=== PATIENT | female | born 1970 | race Two or more races ===

== ENCOUNTER 2017-11-11 07:58 | Emergency (ER) | payer OTHER ==
[~2017-11-11] VITALS: Ht 157.5 cm; Wt 108.9 kg
[2017-11-11 07:58] VITALS: BP 125/70
== END 2017-11-11 08:41 | disposition home or self-care (01) ==
LOC: ER 08:00
DX: J02.9 Acute pharyngitis, unspecified (principal); B34.9 Viral infection, unspecified; J45.909 Unspecified asthma, uncomplicated; Z90.49 Acquired absence of other specified parts of digestive tract
CPT/HCPCS: 71045; 93005; 99284; A4606; Z7610

== ENCOUNTER 2018-03-21 08:23 | Emergency (ER) | payer MEDICAID ==
[~2018-03-21] VITALS: Ht 162.6 cm; Wt 111.1 kg
--- NOTE | 2018-03-21 08:23 | NUR ---
PT BB SELF TO ER, AMBULATORY IN A STEADY GAIT TO ED BED 12 PT IS C/O FEELING WEAK, DIZZY, LIGHT HEADED X WEDNESDAY. PT STS SHE'S HAVING A HEAVY VAG BLEEDING SINCE WEDNESDAY AFTER 10 MONTH-NO MENSTRUAL PERIOD. SHE WAS TOLD BY HER PMD THAT SHE'S EXPERIENCING MENOPAUSAL STAGE. GOWNED. PALCED ON CONT CARDIAC AND POX MONITORING. WILL CONT TO MONITOR
[2018-03-21 08:58] LABS: BASOPHILS # (AUTO) 0.2 /CMM (0.0-0.2); BASOPHILS % (AUTO) 2.6 % (0.0-2.0); HEMATOCRIT 43 % (33-45); HEMOGLOBIN 15.1 g/dL (11.5-14.8); LYMPHOCYTES # (AUTO) 1.4 /CMM (0.8-4.8); MEAN CORPUSCULAR HEMOGLOBIN 30 PG (26.0-33.0); MEAN CORPUSCULAR HGB CONC 35 g/dl (31.0-36.0); MEAN CORPUSCULAR VOLUME 86 fL (82-100); MONOCYTES # (AUTO) 0.4 /CMM (0.1-1.30); MONOCYTES % (AUTO) 7.4 % (2.0-12.0); NEUTROPHILS # (AUTO) 3.8 /CMM (1.8-8.9); PLATELET COUNT (AUTO) 344 /CMM (150-450)
[2018-03-21 09:08] LABS: CALCIUM, SERUM 9.2 mg/dL (8.5-10.1); CREATININE 0.8 mg/dL (0.6-1.3); POTASSIUM 4.1 mmol/L (3.5-5.1)
[2018-03-21 09:33] VITALS: BP 152/81
--- NOTE | 2018-03-21 09:35 | NUR ---
Patient discharged to home in stable condition. Written and verbal after care instructions given. Patient verbalizes understanding of instruction.
== END 2018-03-21 09:34 | disposition home or self-care (01) ==
LOC: ER 08:31
DX: N93.8 Other specified abnormal uterine and vaginal bleeding (principal); J45.909 Unspecified asthma, uncomplicated; Z90.49 Acquired absence of other specified parts of digestive tract; Z88.8 Allergy status to other drugs, medicaments and biological substances
CPT/HCPCS: 36415; 80048; 84702; 85025; 99284; A4606; Z7610

== ENCOUNTER 2018-09-07 18:37 | Emergency (ER) | payer MEDICAID ==
[~2018-09-07] VITALS: Ht 162.6 cm; Wt 117.9 kg
[2018-09-07 18:37] VITALS: BP 139/77
[2018-09-07] MEDS ORDERED: IBUPROFEN 600 MG TABLET PO ONE ×2 (19:11→19:30)
== END 2018-09-07 19:24 | disposition home or self-care (01) ==
LOC: ER 18:38
DX: S46.091A Other injury of muscle(s) and tendon(s) of the rotator cuff of right shoulder, initial encounter (principal); J45.909 Unspecified asthma, uncomplicated; Z90.49 Acquired absence of other specified parts of digestive tract; Z88.8 Allergy status to other drugs, medicaments and biological substances; X58.XXXA Exposure to other specified factors, initial encounter; Y93.01 Activity, walking, marching and hiking; Y92.89 Other specified places as the place of occurrence of the external cause; Y99.8 Other external cause status
CPT/HCPCS: 99282; A4606; Z7610

== ENCOUNTER 2018-09-14 18:20 | Emergency (ER) | payer MEDICAID ==
[~2018-09-14] VITALS: Ht 154.9 cm; Wt 118.8 kg
[2018-09-14 18:45] VITALS: BP 144/89
[2018-09-14] MEDS ORDERED: KETOROLAC TROMETHAMINE INJ 30 MG/ML VIAL ONE (18:56)
[2018-09-14] MEDS ORDERED: HYDROCODONE/APAP 10/325MG 1 EA TABLET ONE (18:56)
[2018-09-14] MEDS: HYDROCODONE/APAP 10/325MG 1 EA TABLET PO ONE (19:04)
[2018-09-14] MEDS: KETOROLAC TROMETHAMINE INJ 60 MG/2 ML VIAL IM ONE (19:04)
--- NOTE | 2018-09-14 19:23 | NUR ---
REPORT GIVEN TO BRITTANI MENDOZA FOR ANNETTE, AWAITING XRAY RESULT.
== END 2018-09-14 19:54 | disposition home or self-care (01) ==
LOC: ER 18:24
DX: M25.511 Pain in right shoulder (principal); M62.838 Other muscle spasm; J45.909 Unspecified asthma, uncomplicated; Z90.49 Acquired absence of other specified parts of digestive tract; Z88.8 Allergy status to other drugs, medicaments and biological substances
CPT/HCPCS: 73030-TC; J1885

== ENCOUNTER 2019-02-07 19:05 | Emergency (ER) | payer MEDICAID ==
[~2019-02-07] VITALS: Ht 154.9 cm; Wt 108.9 kg
[2019-02-07 19:20] VITALS: BP 131/76
--- NOTE | 2019-02-07 19:26 | NUR ---
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
[2019-02-07] MEDS ORDERED: KETOROLAC TROMETHAMINE INJ 30 MG/ML VIAL ONE (19:31)
[2019-02-07] MEDS: KETOROLAC TROMETHAMINE INJ 60 MG/2 ML VIAL IM ONE (19:35)
--- NOTE | 2019-02-07 19:50 | NUR ---
TECH AT BEDSIDE FOR DUPLEX SCAN.
--- NOTE | 2019-02-07 20:44 | NUR ---
Patient discharged to home in stable condition. Written and verbal after care instructions given. Patient verbalizes understanding of instruction.
== END 2019-02-07 20:50 | disposition home or self-care (01) ==
LOC: ER 19:07
DX: M54.16 Radiculopathy, lumbar region (principal); J45.909 Unspecified asthma, uncomplicated; Z90.49 Acquired absence of other specified parts of digestive tract; Z88.8 Allergy status to other drugs, medicaments and biological substances
CPT/HCPCS: 93971; 96372; 99284; J1885

== ENCOUNTER 2019-06-19 18:29 | Emergency (ER) | payer MEDICAID ==
[~2019-06-19] VITALS: Ht 154.9 cm; Wt 113.4 kg
[2019-06-19 18:57] VITALS: BP 127/80
--- NOTE | 2019-06-19 19:30 | NUR ---
CALLED PT, PHYSICALLY NOT IN WR AT THIS TIME
--- NOTE | 2019-06-19 20:14 | NUR ---
CALLED PT, PT NOT PHYSICALLY IN WR AT THIS TIME.
--- NOTE | 2019-06-19 21:04 | NUR ---
CALLED PT, NO RESPONSE, PT NOT PHYSICALLY IN WR.
== END 2019-06-19 21:05 | disposition left against medical advice (07) ==
LOC: ER 18:29
DX: Z53.21 Procedure and treatment not carried out due to patient leaving prior to being seen by health care provider (principal); R10.10 Upper abdominal pain, unspecified; R05 Cough; J45.909 Unspecified asthma, uncomplicated; Z90.49 Acquired absence of other specified parts of digestive tract

== ENCOUNTER 2019-10-23 06:43 | Emergency (ER) | payer MEDICAID ==
[~2019-10-23] VITALS: Ht 154.9 cm; Wt 113.4 kg
--- NOTE | 2019-10-23 06:57 | NUR ---
BIBS FROM HOME TO ER BED 10. AAOX4. NOT IN RESP DISTRESS BUT PT VERBALIZES THAT SHE FEELS SOB. AMBULATORY. C/O GENERALIZED WEAKNESS, PRODUCTIVE COUGH, DIARRHEA AND NAUSEA SINCE WEDNESDAY. PT ALSO C/O ON AND OFF FEVER SINCE WEDNESDAY. PT REPORTS LOWER RIB PAIN WHEN COUGHING. PT IS AFEBRILE, LAST TOOK TYLENOL @ 0200. AT BEDSIDE FOR EVAL. AWAQITING FOR ORDERS
--- NOTE | 2019-10-23 07:49 | NUR ---
PATIENT AMBULATORY WITH STEADY GAIT. VITALS STABLE. DENIES PAIN AT THIS TIME. Patient discharged to home in stable condition. Written and verbal after care instructions given. Patient verbalizes understanding of instruction.
[2019-10-23 07:50] VITALS: BP 133/71
== END 2019-10-23 07:50 | disposition home or self-care (01) ==
LOC: ER 06:44
DX: B34.9 Viral infection, unspecified (principal); J45.909 Unspecified asthma, uncomplicated; E66.01 Morbid (severe) obesity due to excess calories; Z68.42 Body mass index [BMI] 45.0-49.9, adult; Z88.8 Allergy status to other drugs, medicaments and biological substances; Z90.49 Acquired absence of other specified parts of digestive tract
CPT/HCPCS: 71045-TC